=== PATIENT | male | born 1965 | race Caucasian/White ===

== ENCOUNTER → 2019-03-16 | Outpatient (CLI) | payer BC, OTHER ==
[~2019-03-16] VITALS: Ht 180.3 cm; Wt 77.1 kg
[~2019-03-16] MED LIST: FLEXERIL PO
[2019-03-16 08:26] VITALS: BP 132/79
--- NOTE | 2019-03-16 08:54 | NUR ---
Pain Clinic Assessment: 1. History of Osteoarthritis: NONE History of Rheumatoid Arthritis: NONE 2. Height: 5 ft. 11 in. 180.3 cm. Weight: 170.0 lb. oz. 77.112 kg. Patient's BMI: 23.7 3. Vital Signs: BP: 132/79 Pulse: 77 Resp: 14 Temp: 02 Sat: 98 ECG Mon: 4. Pain Intensity: 6 5. Fall Risk: Dizziness: N Needs help standing or walking: N Fallen in the last 3 months: N Fall risk comments: 6. Patient on Blood Thinner: None 7. History of Hypertension: N 8. Opioid Therapy greater than 6 weeks: N Opiate Contract Signed: 9. Risk Assessment Tool Provided: 10. Functional Assessment Tool: 11. Recreational Drug Use: Never Drug Type: Tobacco Use: Current Every Day Smoker Tobacco Type: Cigarettes Amount or Packs/day: 1/2-3/4 How Many Years: 25 Alcohol Use: Yes Frequency: Special Occasions Quant: 1
--- NOTE | 2019-03-23 08:01 | HPC ---
[facility] [place] [address] PAIN MANAGEMENT CONSULTATION Name: JAVIER MERCADO [id number] Admission: 03/16/19 ������������������ Attend Phys: Librado Vergara DO Discharge: ������������������ Date of : 67 Report #: [id number] THIS REPORT FOR: //name// CC: Librado Vaughn MD DATE OF SERVICE: 03/16/2019 REFERRING PHYSICIAN: Jed Vaughn MD. CHIEF COMPLAINT: Low back pain, left lower extremity pain and paresthesias. HISTORY OF PRESENT ILLNESS: As you know, the patient is a 53-year-old male who has acute onset of low back pain, lower extremity pain that presented on 12/17/2018. The patient states he suffered no injury or trauma that may have led to symptom occurrence. He indicates that he has trialled rest, relaxation, changes in his daily activity as well as a Medrol Dosepak, but did not provide much improvement. He is quite active at work, but has not undergone any formalized physical therapy program. He is doing physician-directed home stretching exercises provided by Dr. Vaughn. He has unfortunately failed conservative treatment and has been unable to continue with his daily activities at work and subsequently was referred to imaging. MRI of the lumbar spine was then obtained, which showed a L5-S1 broad-based right paracentral disk bulge with contact of the ventral thecal sac, not correlating to pain distribution. Thus, the patient was referred to out clinic for evaluation. The patient indicates his pain is steady and constant, describes pain as sharp, places current pain score 6/10, daily average of 6/10, worst pain has been 9/10. The patient states standing, walking and doing any activity tends to exacerbate symptoms. Stretching at home tends to improve pain. He has been referred to our service to discuss treatment options for suspected lumbar radiculopathy, without correlating findings in MRI. PAST MEDICAL HISTORY: None. PAST SURGICAL HISTORY: 1. Herniorrhaphy. 2. Repair of a finger laceration. SOCIAL HISTORY: The patient smokes half pack tobacco per day, has done so for at least 25 years. Denies IV or illicit drug use. Admits to anywhere from 1-14 alcoholic beverages per day. He is employed as a laborer pipelines. He is working, not receiving workmen's compensation nor is trying to obtain disability benefits. He is unaccompanied today. [address] [address] PAIN MANAGEMENT CONSULTATION Name: JAVIER MERCADO Room #: REG CLI Lon#: [id number] Admission: 03/16/19 ������������������ Attend Phys: Librado Vergara DO Discharge: ������������������ Date of : 67 Report #: [id number] REVIEW OF SYSTEMS: Positive for loss of appetite, fatigue and weakness, decreased appetite, nocturia, low back pain, lower extremity pain with paresthesias. All other review of systems negative per 12-point review of systems other than those listed in history of present illness. Pain impact score 52/70 indicating severe interference of daily activities secondary to pain. ALLERGIES: NO REPORTED DRUG ALLERGIES. CURRENT MEDICATIONS: Cyclobenzaprine 10 mg p.o. b.i.d. p.r.n. pain. IMAGING: MRI lumbar spine obtained on 02/23/2019 shows L1-L2 unremarkable, L2-L3 mild disk narrowing, facet arthropathy. No central canal neural foraminal stenosis, L3-L4. Mild degree of disk bulging, facet arthropathy, moderate bilateral neural foraminal encroachment. No central canal stenosis. L4-L5 disk narrowing, moderate facet arthropathy. No central canal stenosis, moderate bilateral neural foraminal encroachment. L5-S1, broad-based right paracentral disk protrusion contacting and mildly flattening the ventral thecal sac without central canal stenosis, advanced facet arthropathy, moderate bilateral neural foraminal encroachment. PHYSICAL EXAMINATION: VITAL SIGNS: Blood pressure 132/79, pulse 77, respiratory rate 14 and unlabored. The patient is 98% on room air. Height 5 feet 11 inches tall, weight 170 pounds, BMI calculated 23.7. GENERAL: Well-developed, well-nourished, well-hydrated, 53-year-old male. He appears his stated age. He is placing current pain score 6/10. HEENT: Normocephalic, atraumatic. Pupils equal, round, reactive to light. Extraocular muscles are intact. Sclerae nonicteric without injection. NEUROLOGIC: Cranial nerves 2-12 grossly intact. Speech is fluent. The patient deemed a fair historian. LUNGS: Clear, no wheeze, rhonchi or rales. CARDIOVASCULAR: Regular. No appreciable gallop, no rub. ABDOMEN: Soft, nontender, nondistended. EXTREMITIES: Show no clubbing, no cyanosis and no edema. MUSCULOSKELETAL: Lower extremity strength is symmetrical 5/5, intact to light touch from L1 through S2 dermatomes. Seated straight leg raising negative. Supine straight leg raising positive mildly on the left at approximately 70-degree angles. Muscle bulk and tone equal and symmetrical in lower extremities. He remains intact to light touch from L1 through S2 dermatomes. Achilles and patellar tendons response 2+/4. Ankle clonus negative. Babinski is negative. FABERs test positive left, negative right. ASSESSMENT: 1. Symptomatic lumbar radiculopathy. [address] [place] [address] PAIN MANAGEMENT CONSULTATION Name: JAVIER MERCADO Room #: REG QUE Rae#: [id number] Admission: 03/16/19 ������������������ Attend Phys: Librado Vergara DO Discharge: ������������������ Date of : 67 Report #: [id number] 2. Neural foraminal stenosis of lumbar spine. 3. Displacement of lumbar intervertebral disk with radiculopathy. 4. Lumbosacral spondylosis with radiculopathy. 5. Left Hip Pain PLAN: 1. Based on today's physical exam and history the patient has provided, the description the patient uses in regards to pain as well as location of symptoms, likely source of the patient's pain is lumbar radiculopathy. The patient and I discussed at length today potential treatment options for lumbar radicular symptoms including physical therapy, stretching exercise, core strengthening in a formalized fashion. We discussed medication management, having the patient initiate neuropathic pain medications for pain control along with a consistent nonsteroidal anti-inflammatory. We discussed epidural injection, for which the patient was referred to our clinic. We also discussed surgical options. After reviewing risks and benefits of all proposed treatment options, the patient chose to move forward with a left hip injection under fluoroscopic guidance. 2. The patient indicates today that he was unable to take off the rest of the day to recover from the procedure. We typically require our patients to have 24 hours of rest, relaxation after the injection to improve efficacy. The patient will make an appointment back with our clinic next week to undergo this epidural injection. We have taken the liberty of providing him an early appointment on Thursday, 03/22, to accommodate his schedule. 3. We wish to thank Dr. Vaughn for the referral of the patient to our clinic. We will keep you apprised of his response to treatment as we address suspected lumbar radiculopathy. Again, we wish to thank you for the opportunity to see this patient in consultation. ��������������������������������������������� <ELECTRONICALLY SIGNED> ���������������������������������������� By: Librado Vergara DO ��������������������������������������������� 03/23/19 0801 [id number] Librado Vergara DO /nt
== END ==
LOC: PAIN 06:45
DX: M54.5 Low back pain (principal); R20.2 Paresthesia of skin; M79.605 Pain in left leg

== ENCOUNTER → 2019-03-22 | Outpatient (CLI) | payer BC, OTHER ==
[~2019-03-22] VITALS: Ht 180.3 cm; Wt 76.8 kg
--- NOTE | ~2019-03-22 | HPC ---
[facility] [place] [address] PAIN MANAGEMENT CONSULTATION Name: JAVIER MERCADO Room #: REG CL [facility].#: [id number] Admission: 03/22/19 ������������������ Attend Phys: Librado Vergara DO Discharge: ������������������ Date of : 67 Report #: [id number] THIS REPORT FOR: //name// CC: Librado Vaughn MD DATE OF SERVICE: 03/22/2019 REFERRING PHYSICIAN: Jed Vaughn M.D. CHIEF COMPLAINT: Low back pain and left lower extremity pain with paresthesias. HISTORY OF PRESENT ILLNESS: As you know, the patient is a 53-year-old male who had acute onset of low back pain, left lower extremity pain with paresthesias, presented on 12/17/2018. He suffered no injury or trauma at that time that symptoms occurred. He was seen in consultation per the request of Dr. Vaughn on 03/16/2019. At that time, the patient was evaluated and it appears he has 2 different pain generators, one being possibly the left hip. He is able to localize pain directly within the hip joint itself. It is exacerbated with standing and walking, improves with rest and relaxation. He also appears to be suffering from some mild potential lumbar radicular symptoms. The findings of his MRI are nonspecific to provide any lateralizing findings. We have established today's appointment for the patient to undergo a left intraarticular hip injection. This will provide us with information in regards to whether or not his symptoms are related to the left hip or whether his symptoms are more related to lumbar radicular symptoms. He returns today for a left intraarticular hip injection under fluoroscopic guidance to address left hip pain. ALLERGIES: No reported drug allergies. CURRENT MEDICATIONS: Cyclobenzaprine 10 mg b.i.d. SOCIAL HISTORY: The patient smokes half pack tobacco per day, has done so for at least 25 years. Denies IV or illicit drug use, admits to anywhere from 1-14 alcoholic beverages per day. He is employed as a production laborer, working, not receiving workmen's compensation, unaccompanied today. IMAGING DATA: No new imaging available. PHYSICAL EXAMINATION: GENERAL: Well-developed, well-nourished, well-hydrated 53-year-old male appearing stated age, pain is rated somewhere around 6-7/10. HEENT: Normocephalic and atraumatic. Pupils equal, round and reactive to light. [facility] [address] [place] [address] PAIN MANAGEMENT CONSULTATION Name: JAVIER MERCADO Room #: REG CLI [facility].#: [id number] Admission: 03/22/19 ������������������ Attend Phys: Librado Vergara DO Discharge: ������������������ Date of : 67 Report #: [id number] EXTREMITIES: Show no clubbing, no cyanosis and no edema. MUSCULOSKELETAL: The patient does have Ramone's positive on the left, negative right. Gait mildly antalgic favoring left lower extremity over right. Seated straight leg raising negative. Supine straight leg raising remains mildly positive left. ASSESSMENT: 1. Left hip pain. 2. Possible lumbar radiculopathy. 3. Neural foraminal stenosis of the lumbar spine. 4. Displacement of the lumbar intervertebral disk with possible radiculopathy. 5. Lumbosacral spondylosis with possible radiculopathy. 6. Chronic intractable pain. PLAN: 1. The patient returns today in followup visit to undergo a left intraarticular hip injection. This is to help with left hip pain that has been present for some time. The patient has been advised of the risks and benefits of a left intraarticular hip injection. These risks include but are not necessarily limited to bleeding, bruising, infection, worsening pain, no relief of pain and also risk of temporary or permanent muscle weakness, temporary or permanent nerve damage, possible joint destruction and . The patient states understood and wished to proceed. 2. No medication changes made at today's visit. The patient will continue current medical therapy as previously prescribed. 3. We will see the patient back in followup visit in approximately 3 weeks. At that time, review the efficacy of this left intraarticular hip injection and determine if next in the series of left intraarticular hip injections might be necessary. At that time, we will also discuss whether or not symptoms of lumbar radicular symptoms remain present. PROCEDURE NOTE DESCRIPTION OF PROCEDURE: Left intra-articular hip injection under fluoroscopic guidance. After obtaining written consent, the patient was taken back to fluoroscopy suite, placed in supine position. Image intensifier was then brought into position over the left hip and AP imaging was obtained. The area overlying the left hip was then prepped and draped in aseptic fashion. A sterile marker was used to klaus the area overlying the injection site and we then anesthetized the skin with 2 mL of 1% lidocaine. A 20-gauge 3-1/2 inch spinal needle with bent tip was advanced into the left hip under direct fluoroscopic guidance. Needle was advanced until reaching the proximal head of the femur. The needle was then retracted 1 mm and aspiration [address] [address] PAIN MANAGEMENT CONSULTATION Name: JAVIER MERCADO Room #: REG QUE Rae#: [id number] Admission: 03/22/19 ������������������ Attend Phys: Librado Vergara DO Discharge: ������������������ Date of : 67 Report #: [id number] noted to be negative for heme. After negative aspiration for heme, 0.5 mL of Omnipaque injected. An excellent left hip arthrogram was obtained. After negative aspiration for heme, 3 mL of a solution containing 1 mL 40 mg per mL, 40 mg total triamcinolone, 2 mL of bupivacaine 0.5% injected slowly. Needle then retracted approximately half way, flushed with 1 mL of 1% lidocaine and then removed. Sterile bandage placed over injection site. No new motor deficits present in lower extremity following procedure. The patient tolerated procedure well, carefully escorted to recovery room in stable condition. No apparent complication. After meeting discharge criteria, the patient discharged home. ��������������������������������������������� ���������������������������������������� By: ��������������������������������������������� [id number] Librado Vergara DO /nt
[2019-03-22 09:15] VITALS: BP 125/71
--- NOTE | 2019-03-22 09:21 | NUR ---
Pain Clinic Assessment: 1. History of Osteoarthritis: NONE History of Rheumatoid Arthritis: NONE 2. Height: 5 ft. 11 in. 180.3 cm. Weight: 169.4 lb. oz. 76.839 kg. Patient's BMI: 23.6 3. Vital Signs: BP: 125/71 Pulse: 56 Resp: 14 Temp: 02 Sat: 99 ECG Mon: 4. Pain Intensity: 6-7 5. Fall Risk: Dizziness: N Needs help standing or walking: N Fallen in the last 3 months: N Fall risk comments: 6. Patient on Blood Thinner: None 7. History of Hypertension: N 8. Opioid Therapy greater than 6 weeks: N Opiate Contract Signed: 9. Risk Assessment Tool Provided: 10. Functional Assessment Tool: 11. Recreational Drug Use: Never Drug Type: Tobacco Use: Current Every Day Smoker Tobacco Type: Cigarettes Amount or Packs/day: 3/4 How Many Years: 25 Alcohol Use: Yes Frequency: Special Occasions Quant: 1-2
== END | disposition home or self-care (01) ==
LOC: PAIN 06:39
DX: M25.552 Pain in left hip (principal); G89.29 Other chronic pain; M48.061 Spinal stenosis, lumbar region without neurogenic claudication; M51.26 Other intervertebral disc displacement, lumbar region; M47.897 Other spondylosis, lumbosacral region; F17.210 Nicotine dependence, cigarettes, uncomplicated